=== PATIENT | female | born 1975 | race Caucasian/White ===

== ENCOUNTER → 2016-06-07 | Outpatient (CLI) | payer BC | LOC: GMAB 15:39 | PROVIDERS: ATTEND Family Medicine | DX: E03.9 Hypothyroidism, unspecified (principal) ==

== ENCOUNTER 2016-08-14 12:09 | Emergency (ER) | payer BC ==
[2016-08-14 12:25] VITALS: TEMP 99.1
[2016-08-14] MEDS ORDERED: ASPIRIN (CHEWABLE) 81 MG TAB ONE (12:28)
[2016-08-14] MEDS ORDERED: NITROGLYCERIN 0.4 MG 25 EA TAB SL ONE ×2 (12:28→12:39)
[2016-08-14] MEDS ORDERED: ASPIRIN (CHEWABLE) 81 MG TAB PO ONE (12:39)
--- NOTE | 2016-08-14 13:04 | ED.PDOC ---
History of Present Illness - General Chief Complaint: Respiratory Problem Stated Complaint: left arm pain, short of breath Time Seen by Provider: 08/14/16 12:11 Source: patient, RN notes reviewed, Vital Signs reviewed Exam Limitations: no limitations - History of Present Illness Initial Comments: Patient reports that she started Sunday with an episode of dizziness and SOB at work. Went home and rested. Over the weekend she had intermittent episodes of "feeling weird". This morning she started with L upper arm pain, shortness of breath, dizziness and mild chest pressure. Timing/Duration: days - 3-4, intermittent Severity: moderate Activities at Onset: other - @ work Possible Cause: no prior episodes Improving Factors: nothing Worsening Factors: movement, other - talking Associated Symptoms: chest pain Respiratory Risk Factors: no cause identified Allergies/Adverse Reactions: Allergies NO KNOWN ALLERGY Allergy (Verified 08/14/16 12:19) Home Medications: Ambulatory Orders Levothyroxine Sodium [Synthroid] 0.112 mg PO DAILY 04/28/16 Review of Systems - Review of Systems Constitutional: States: no symptoms reported. Denies: chills, diaphoresis, fever, malaise, weakness EENTM: States: no symptoms reported Respiratory: States: short of breath. Denies: cough Cardiology: States: chest pain. Denies: edema, palpitations, syncope Gastrointestinal/Abdominal: States: nausea - started just prior to arrival here. Genitourinary: States: no symptoms reported Musculoskeletal: States: see HPI - L upper arm pain Skin: States: no symptoms reported Neurological: States: other - lightheaded/dizzy Endocrine: States: no symptoms reported Hematologic/Lymphatic: States: no symptoms reported Past Medical History (General) - Patient Medical History Hx Seizures: No Hx Stroke: No Hx Dementia: No Hx Asthma: No Hx of COPD: No Hx Cardiac Disorders: No Hx Congestive Heart Failure: No Hx Pacemaker: No Hx Hypertension: No Hx Thyroid Disease: Yes Hx Diabetes: No Hx Gastroesophageal Reflux: No Hx Renal Disease: No Hx Cancer: No Hx of HIV: No Hx Hepatitis C: No Hx MRSA: No MRSA Source:: Wound - Vaccination History Hx Tetanus, Diphtheria Vaccination: Yes Hx Influenza Vaccination: No Hx Pneumococcal Vaccination: No Immunizations Up to Date: No - Social History Hx Tobacco Use: No Hx Chewing Tobacco Use: No Hx Alcohol Use: No Hx Substance Use: No Hx Substance Use Treatment: No Hx Depression: No Feels Threatened In Home Enviroment: No Feels Threatened In a Relationship: No Hx Physical Abuse: No Hx Emotional Abuse: No Hx Suspected Abuse: No - Female History Patient is a Female of Child Bearing Age (10 -59 yrs old): No Patient : No Family Medical History - Family History Mother Family History: No Known Living Status: Unknown Hx Family Asthma: No Hx Family Hypertension: Yes Hx Family Diabetes: Yes Physical Exam - Physical Exam General Appearance: Alert, No apparent distress, Obvious distress - obviously SOB, Well Developed, Well Groomed, Well Hydrated, Well Nourished Eyes, Ears, Nose, Throat Exam: PERRL/EOMI, normal ENT inspection, pharynx normal Neck: non-tender, full range of motion, supple, normal inspection Respiratory: lungs clear, normal breath sounds, respiratory distress - Obviously SOB Cardiovascular/Chest: normal peripheral pulses, regular rate, rhythm, no edema, no gallop, no JVD, no murmur Peripheral Pulses: radial,right: 2+, radial,left: 2+, posterior tibialis,right: 2+, posterior tibialis,left: 2+ Gastrointestinal/Abdominal: normal bowel sounds, non tender, soft, no organomegaly, no pulsatile mass Extremity: normal range of motion, non-tender, normal inspection 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 Chest pressure improved with 2nd SLNTG - down to 05/3008/14/16 13:17 Patient reports she is feeling better. She is no longer visibly SOB. First set of cardiac enzymes looks ok. EKG is changed from 04/28/16. So will repeat cardiac enzymes in 3 hours. Patient is agreeable with plan. 08/14/16 16:11 Second set of cardiac enzymes are normal. Will d/c home with close follow up with PCP and [facility]. - Results/Orders Results/Orders: Laboratory Tests 08/14/16 08/14/16 12:45 15:40 WBC 7.8 RBC 4.51 Hgb 13.9 Hct 41.3 MCV 91.6 MCH 30.8 MCHC 33.7 RDW 13.8 Plt Count 175 MPV 8.0 Absolute Neuts (auto) 5.30 Absolute Lymphs (auto) 2.00 Absolute Monos (auto) 0.40 Absolute Eos (auto) 0.10 Absolute Basos (auto) 0.10 Neutrophils % 67.4 Lymphocytes % 25.8 Monocytes % 5.0 Eosinophils % 1.0 Basophils % 0.8 Sodium 138 Potassium 3.9 Chloride 104 Carbon Dioxide 27 Anion Gap 10.9 L BUN 16 Creatinine 0.96 BUN/Creatinine Ratio 16.7 Random Glucose 129 H Serum Osmolality 278.6 Calcium 9.1 Total Bilirubin 0.6 AST 25 ALT 22 Alkaline Phosphatase 38 L Creatine Kinase 154 H 133 CK-MB (CK-2) 2.0 1.6 CK-MB (CK-2) % Not Reportable Not Reportable Troponin I < 0.02 < 0.02 B-Natriuretic Peptide 25.1 Serum Total Protein 6.5 Albumin 3.9 Globulin 2.6 Albumin/Globulin Ratio 1.5 - EKG/XRAY/CT EKG: Sinus, nonspecific ST T wave Chg, Changed from - 04/28/16 - T-waves are flattened in V3-6, III Comments: poor R wave progression, Rate 87bpm XRAY: chest - Normal per radiology Departure - Departure Clinical Impression: Shortness of breath Chest pain Qualifiers: Chest pain type: unspecified Qualifier Code: (R07.9) Chest pain, unspecified Time of Disposition: 16:14 Disposition: Discharge to Home or Self Care Condition: Good Departure Forms: ED Discharge - Pt. Copy, Patient Portal Self Enrollment Instructions: DI for Shortness of Breath, DI for Atypical Chest Pain Referrals: RACHELE RODRIGEZ MD [Consulting Staff] - 1-2 Weeks Margarito Wiseman MD [Primary Care Provider] - 1-2 Days Home Medications: Ambulatory Orders Levothyroxine Sodium [Synthroid] 0.112 mg PO DAILY 04/28/16
--- NOTE | 2016-08-14 13:34 | RAD ---
EXAM DESCRIPTION: Chest,1 View CLINICAL HISTORY: 40 years Female, chest pain/SOB COMPARISON: May 11, 2012 TECHNIQUE: AP portable chest. FINDINGS: The lungs are clear. There is no infiltrate or effusion. The heart is normal size. IMPRESSION: Normal. Electronically signed by: Dada Holland MD 08/14/2016 1:23 PM CDT
[2016-08-14 16:51] VITALS: BP 104/66; O2SAT 97
== END 2016-08-14 16:20 | disposition home or self-care (01) ==
LOC: ER 12:09
DX: R06.02 Shortness of breath (principal); R07.9 Chest pain, unspecified; E07.9 Disorder of thyroid, unspecified

== ENCOUNTER → 2016-10-19 | Outpatient (CLI) | payer BC | END | disposition home or self-care (01) | LOC: LAB.O 09:42 | PROVIDERS: ATTEND Family Medicine | DX: N95.1 Menopausal and female climacteric states (principal); E03.4 Atrophy of thyroid (acquired); E34.9 Endocrine disorder, unspecified ==

== ENCOUNTER → 2017-08-17 | Outpatient (CLI) | payer BC ==
--- NOTE | 2017-08-18 08:58 | RAD ---
EXAM DESCRIPTION: Knee,Left Complete CLINICAL HISTORY: 41 years, Female, PAIN COMPARISON: Previous study March 24, 2016 TECHNIQUE: 4 views of the left knee FINDINGS: No fracture or dislocation. Bones appear normally mineralized with normal trabecular pattern. Narrowed appearance of the medial compartment on frontal view. Medial joint line spurring is present. There is spurring at the tibial spines. Small ossific loose body is seen in the intercondylar region. Lateral view shows normal position of the patella. Mild posterior patellar spurring. No suprapatellar knee joint effusion. Normal contour of quadriceps and patellar tendons. No abnormal patellar tilt or subluxation on patellar sunrise view. Compared to previous study, findings are essentially unchanged. IMPRESSION: Degenerative osteoarthrosis of the left knee with predominant involvement of the medial compartment. Electronically signed by: Trung Scanlon MD 08/18/2017 8:57 AM CDT
--- NOTE | 2017-08-18 09:00 | RAD ---
EXAM DESCRIPTION: Pelvis CLINICAL HISTORY: 41 years Female, PAIN IN LEFT HIP COMPARISON: None. TECHNIQUE: Single AP view of the hips and pelvis FINDINGS: Negative for fracture or dislocation. 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 Calcifications are seen in the pelvis probably vascular. IMPRESSION: No acute process. Electronically signed by: Trung Scanlon MD 08/18/2017 8:58 AM CDT
== END ==
LOC: RAD 07:55
PROVIDERS: ATTEND Orthopaedic Surgery
DX: M17.12 Unilateral primary osteoarthritis, left knee (principal); M25.552 Pain in left hip

== ENCOUNTER → 2017-08-20 | Outpatient (CLI) | payer BC | LOC: GMAB 16:39 | PROVIDERS: ATTEND Family Medicine | DX: M25.562 Pain in left knee (principal); R23.2 Flushing; E04.9 Nontoxic goiter, unspecified ==

== ENCOUNTER → 2018-06-05 | Outpatient (CLI) | payer BC | LOC: GMAE 17:19 | PROVIDERS: ATTEND Family Medicine | DX: E03.9 Hypothyroidism, unspecified (principal) ==

== ENCOUNTER → 2018-07-11 | Outpatient (CLI) | payer BC | LOC: LAB.O 15:23 | PROVIDERS: ATTEND Family Medicine | DX: S61.032A Puncture wound without foreign body of left thumb without damage to nail, initial encounter (principal) ==

== ENCOUNTER 2018-08-25 11:05 | Emergency (ER) | payer BC ==
[2018-08-25] MEDS ORDERED: LIDOCAINE 1% 2 ML VIAL INJ ONE (11:57)
--- NOTE | 2018-08-25 11:59 | ED.PDOC ---
History of Present Illness - General Chief Complaint: Problem Stated Complaint: pain with urination,bilateral flank pain Time Seen by Provider: 08/25/18 11:30 Source: patient Exam Limitations: no limitations - History of Present Illness Initial Comments: The patient is a 42-year-old female presenting to the emergency room secondary to symptoms ofa UTI and pyelonephritis. She started with symptoms of urinary frequency and bladder cramping. She also had significant dysuria. She has had a small amount of hematuria as well. Today she started having some flank pain. Mild nausea. No vomiting. No fever. No chest pain. No syncope or near syncope. No recent urinary tract infections. The patient has had a hysterectomy. Timing/Duration: other - 3-5 days Severity: moderate Improving Factors: nothing Worsening Factors: nothing Associated Symptoms: diaphoresis, nausea/vomiting Allergies/Adverse Reactions: Allergies NO KNOWN ALLERGY Allergy (Verified 08/14/16 12:19) Home Medications: Ambulatory Orders Levothyroxine Sodium [Synthroid] 0.112 mg PO DAILY 04/28/16 Ciprofloxacin [Cipro] 500 mg PO BID #14 tab 08/25/18 Nitrofurantoin Monohydrate Mac [Macrobid] 100 mg PO BID #14 capsule 08/25/18 Review of Systems - Review of Systems Constitutional: States: malaise EENTM: States: no symptoms reported Respiratory: States: no symptoms reported Cardiology: States: no symptoms reported Gastrointestinal/Abdominal: States: abdominal pain, diarrhea - 2 episodes, nausea. Denies: constipation, vomiting Genitourinary: States: dysuria, frequency, hematuria, pain Musculoskeletal: States: back pain - right flank pain Skin: States: no symptoms reported Neurological: States: no symptoms reported Endocrine: States: no symptoms reported All other Systems: No Change from Baseline Past Medical History (General) - Patient Medical History Hx Seizures: No Hx Stroke: No Hx Dementia: No Hx Asthma: No Hx of COPD: No Hx Cardiac Disorders: No Hx Congestive Heart Failure: No Hx Pacemaker: No Hx Hypertension: No Hx Thyroid Disease: Yes Hx Diabetes: No Hx Gastroesophageal Reflux: No Hx Renal Disease: No Hx Cancer: No Hx of HIV: No Hx Hepatitis C: No Hx MRSA: No MRSA Source:: Wound Surgical History: Hysterectomy - Vaccination History Hx Tetanus, Diphtheria Vaccination: Yes Hx Influenza Vaccination: No Hx Pneumococcal Vaccination: No - Social History Hx Tobacco Use: No Hx Chewing Tobacco Use: No Hx Alcohol Use: No Hx Substance Use: No Hx Substance Use Treatment: No Hx Depression: Yes Hx Physical Abuse: No Hx Emotional Abuse: No Hx Suspected Abuse: No - Female History Patient is a Female of Child Bearing Age (10 -59 yrs old): No Patient : No Family Medical History - Family History Mother Family History: No Known Living Status: Unknown Hx Family Asthma: No Hx Family Hypertension: Yes Hx Family Diabetes: Yes Physical Exam - Physical Exam General Appearance: Alert, No apparent distress, Other - the patient is obviously uncomfortable Eye Exam: bilateral normal Ears, Nose, Throat: hearing grossly normal, normal ENT inspection, normal pharynx Neck: full range of motion, supple Respiratory: no respiratory distress, no accessory muscle use Cardiovascular/Chest: normal peripheral pulses, no edema, other - regular rate Peripheral Pulses: radial,right: 2+, radial,left: 2+ Gastrointestinal/Abdominal: soft, other - mild suprapubic discomfort palpation. No rebound or peritoneal signs. 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 The patient is being dosed with Rocephin and ciprofloxacin here. She is going to be written for ciprofloxacin and Macrobid for the next 7 days. She needs to keep herself well-hydrated. Motrin or Aleve can be used as an anti-inflammatory. ER warnings were given for any worsening. Keep follow-up with primary care doctor later this week for a repeat urinalysis to confirm clearance. Urine culture is being done. Vital signs are stable. - Results/Orders Results/Orders: Laboratory Tests 08/25/18 11:27 Urine Color Green H Urine Appearance Cloudy Urine pH 5.5 Ur Specific [place] 1.025 Urine Protein 100 H Urine Glucose (UA) Negative Urine Ketones Negative Urine Blood Moderate H Urine Nitrite Negative Urine Bilirubin Negative Urine Urobilinogen 0.2 Ur Leukocyte Esterase Moderate H Urine RBC Obscured by wbc's H Urine WBC >50 H Ur Epithelial Cells 0 Urine Bacteria 3+ H Departure - Departure Clinical Impression: Pyelonephritis, Cystitis Disposition: Discharge to Home or Self Care Condition: Fair Departure Forms: ED Discharge - Pt. Copy, Patient Portal Self Enrollment Instructions: DI for Urinary Tract Infection (UTI) Diet: regular diet Activity: increase activity as tolerated Referrals: SULTANA STRONG MD [Primary Care Provider] - 1-5 Days Prescriptions: Ciprofloxacin [Cipro] 500 mg PO BID #14 tab Nitrofurantoin Monohydrate Mac [Macrobid] 100 mg PO BID #14 capsule Home Medications: Ambulatory Orders Levothyroxine Sodium [Synthroid] 0.112 mg PO DAILY 04/28/16 Ciprofloxacin [Cipro] 500 mg PO BID #14 tab 08/25/18 Nitrofurantoin Monohydrate Mac [Macrobid] 100 mg PO BID #14 capsule 08/25/18 Additional Instructions: the patient is a 42-year-old female presenting to the emergency room secondary to what appears to be cystitis and pyelonephritis on the right. The patient is being dosed with Rocephin and ciprofloxacin here. She is going to be written for ciprofloxacin and Macrobid for the next 7 days. She needs to keep herself well-hydrated. Motrin or Aleve can be used as an anti-inflammatory. ER warnings were given for any worsening. Keep follow-up with primary care doctor later this week for a repeat urinalysis to confirm clearance. Urine culture is being done. Vital signs are stable.
[2018-08-25] MEDS: cefTRIAXone SODIUM 1 GM VIAL IM ONE (12:04)
[2018-08-25] MEDS: CIPROFLOXACIN 500 MG TAB PO ONE (12:05)
[2018-08-25] MEDS: FLUCONAZOLE 100 MG TAB PO ONE (12:05)
[2018-08-25 12:16] VITALS: BP 102/75; TEMP 98.8; O2SAT 99
== END 2018-08-25 12:15 | disposition home or self-care (01) ==
LOC: ER 11:05
DX: N12 Tubulo-interstitial nephritis, not specified as acute or chronic (principal); N30.90 Cystitis, unspecified without hematuria; F32.9 Major depressive disorder, single episode, unspecified; E07.9 Disorder of thyroid, unspecified
CPT/HCPCS: 81001; 87086; J0696

== ENCOUNTER → 2018-09-11 | Outpatient (CLI) | payer BC | LOC: GMAE 15:10 | PROVIDERS: ATTEND Family Medicine | DX: R53.82 Chronic fatigue, unspecified (principal); N12 Tubulo-interstitial nephritis, not specified as acute or chronic; N10 Acute pyelonephritis ==

== ENCOUNTER → 2018-09-25 | Outpatient (CLI) | payer BC | LOC: GMAE 16:46 | PROVIDERS: ATTEND Family Medicine | DX: R53.82 Chronic fatigue, unspecified (principal) ==

== ENCOUNTER 2018-12-08 11:25 | Emergency (ER) | payer BC ==
--- NOTE | 2018-12-08 11:57 | ED.PDOC ---
History of Present Illness - General Chief Complaint: Cardiovascular Problem Stated Complaint: chest pain Time Seen by Provider: 12/08/18 11:33 Source: patient - History of Present Illness Initial Comments: Patient presents with chest pressure for about one hour. 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 She says that it feels like pressure on her sternum. It is non-radiating. She has light-headedness with it. She has had multiple previous episodes that she says were anxiety attacks. She says this feels like an anxiety attack but it has lasted longer. Denies cardiac history. She has intermittent bipedal edema. She says her cholesterol was " a little high" recently but she is not receiving treatment. No history of orthopnea. No COLLIER. No first degree relatives with cardiac disease. No history of tobacco use nor diabetes. No other complaints. Timing/Duration: 1 hour Severity: mild Improving Factors: nothing Worsening Factors: nothing Associated Symptoms: other - as in HPI Allergies/Adverse Reactions: Allergies NO KNOWN ALLERGY Allergy (Verified 08/14/16 12:19) Home Medications: Ambulatory Orders Levothyroxine Sodium [Synthroid] 0.112 mg PO DAILY 04/28/16 Ciprofloxacin [Cipro] 500 mg PO BID #14 tab 08/25/18 Nitrofurantoin Monohydrate Mac [Macrobid] 100 mg PO BID #14 capsule 08/25/18 Review of Systems - Review of Systems Constitutional: States: see HPI EENTM: States: no symptoms reported Respiratory: States: no symptoms reported Cardiology: States: see HPI Gastrointestinal/Abdominal: States: no symptoms reported Genitourinary: States: no symptoms reported Musculoskeletal: States: no symptoms reported Skin: States: no symptoms reported Neurological: States: anxiety Endocrine: States: no symptoms reported Hematologic/Lymphatic: States: no symptoms reported Past Medical History (General) - Patient Medical History Hx Seizures: No Hx Stroke: No Hx Dementia: No Hx Asthma: No Hx of COPD: No Hx Cardiac Disorders: No Hx Congestive Heart Failure: No Hx Pacemaker: No Hx Hypertension: No Hx Thyroid Disease: Yes Hx Diabetes: No Hx Gastroesophageal Reflux: No Hx Renal Disease: No Hx Cancer: No Hx of HIV: No Hx Hepatitis C: No Hx MRSA: No MRSA Source:: Wound - Vaccination History Hx Tetanus, Diphtheria Vaccination: Yes Hx Influenza Vaccination: No Hx Pneumococcal Vaccination: No - Social History Hx Tobacco Use: No Hx Chewing Tobacco Use: No Hx Alcohol Use: No Hx Substance Use: No Hx Substance Use Treatment: No Hx Depression: Yes Hx Physical Abuse: No Hx Emotional Abuse: No Hx Suspected Abuse: No - Female History Patient : No Family Medical History - Family History Mother Family History: No Known Living Status: Unknown Hx Family Asthma: No Hx Family Hypertension: Yes Hx Family Diabetes: Yes Physical Exam - Physical Exam General Appearance: Alert Eye Exam: bilateral normal Ears, Nose, Throat: normal ENT inspection Neck: non-tender, full range of motion, supple Respiratory: lungs clear, normal breath sounds Cardiovascular/Chest: normal peripheral pulses, regular rate, rhythm, no edema Gastrointestinal/Abdominal: normal bowel sounds, non tender, soft Back Exam: normal inspection, no CVA tenderness Extremity: normal range of motion, non-tender, normal inspection Neurologic: no motor/sensory deficits, alert, normal mood/affect, oriented x 3 Skin Exam: normal color Lymphatic: no adenopathy Progress - Progress Progress: 12/08/18 14:07 Laboratory Tests 12/08/18 12/08/18 12/08/18 11:56 11:56 11:56 WBC 7.4 RBC 4.66 Hgb 14.7 Hct 43.0 MCV 92.2 MCH 31.6 H MCHC 34.3 RDW 13.7 Plt Count 192 MPV 8.7 Absolute Neuts (auto) 4.50 Absolute Lymphs (auto) 2.20 Absolute Monos (auto) 0.60 Absolute Eos (auto) 0.10 Absolute Basos (auto) 0.10 Neutrophils % 60.6 Lymphocytes % 29.8 Monocytes % 7.5 Eosinophils % 1.2 Basophils % 0.9 PT 9.7 INR 0.97 PTT (SP) 23.2 Sodium 135 Potassium 3.9 Chloride 107 Carbon Dioxide 16 L Anion Gap 15.9 BUN 21 H Creatinine 0.97 BUN/Creatinine Ratio 21.6 H Random Glucose 98 Serum Osmolality 273.0 L Calcium 9.3 Total Bilirubin 0.8 AST 30 ALT 25 Alkaline Phosphatase 35 L Creatine Kinase CK-MB (CK-2) CK-MB (CK-2) % Troponin I B-Natriuretic Peptide Serum Total Protein 7.0 Albumin 4.1 Globulin 2.9 Albumin/Globulin Ratio 1.4 Urine Color Urine Appearance Urine pH Ur Specific [place] Urine Protein Urine Glucose (UA) Urine Ketones Urine Blood Urine Nitrite Urine Bilirubin Urine Urobilinogen Ur Leukocyte Esterase Urine RBC Urine WBC Ur Epithelial Cells Urine Bacteria 12/08/18 12/08/18 11:56 13:13 WBC RBC Hgb Hct MCV MCH MCHC RDW Plt Count MPV Absolute Neuts (auto) Absolute Lymphs (auto) Absolute Monos (auto) Absolute Eos (auto) Absolute Basos (auto) Neutrophils % Lymphocytes % Monocytes % Eosinophils % Basophils % PT INR PTT (SP) Sodium Potassium Chloride Carbon Dioxide Anion Gap BUN Creatinine BUN/Creatinine Ratio Random Glucose Serum Osmolality Calcium Total Bilirubin AST ALT Alkaline Phosphatase Creatine Kinase 189 H CK-MB (CK-2) 2.3 CK-MB (CK-2) % Not Reportable Troponin I < 0.02 B-Natriuretic Peptide 35.0 Serum Total Protein Albumin Globulin Albumin/Globulin Ratio Urine Color Yellow Urine Appearance Clear Urine pH 6.0 Ur Specific [place] 1.010 Urine Protein Negative Urine Glucose (UA) Negative Urine Ketones 15 H Urine Blood Small H Urine Nitrite Negative Urine Bilirubin Negative Urine Urobilinogen 0.2 Ur Leukocyte Esterase Negative Urine RBC 1-3 Urine WBC 0 Ur Epithelial Cells 1-3 Urine Bacteria 0 Patient given one liter NS IV bolus. Symptoms resolved in the E.D. EKG showed NSR with no ST changes nor T wave inversions. No LBBB. Troponin negative. Likely anxiety attack with mild dehydration. Care instructions given. E.R. warnings given. Questions were elicited and answered. Patient voiced understanding and agreement with the plan. Departure - Departure Clinical Impression: Chest pain, Anxiety Disposition: Discharge to Home or Self Care Condition: Good Departure Forms: ED Discharge - Pt. Copy, Patient Portal Self Enrollment Instructions: DI for Chest Pain Diet: resume usual diet Activity: increase activity as tolerated Referrals: SULTANA STRONG MD [Primary Care Provider] - 1-2 Weeks Home Medications: Ambulatory Orders Levothyroxine Sodium [Synthroid] 0.112 mg PO DAILY 04/28/16 Ciprofloxacin [Cipro] 500 mg PO BID #14 tab 08/25/18 Nitrofurantoin Monohydrate Mac [Macrobid] 100 mg PO BID #14 capsule 08/25/18 Additional Instructions: Return to the E.R. if symptoms recur. Return for temperature above 100.3 or shortness of breath. Follow up with your regular doctor in 1-2 days.
[2018-12-08 12:03] VITALS: TEMP 98.7
[2018-12-08] MEDS ORDERED: SODIUM CHLORIDE 0.9% 1000ML 1,000 ML IVS ONE (12:37)
--- NOTE | 2018-12-08 13:13 | RAD ---
EXAM: XR Chest, 1 View CLINICAL HISTORY: 42 years old and is Female; chest pain TECHNIQUE: Frontal view of the chest. COMPARISON: 08/14/2016 FINDINGS: Limitations: None. Lungs: Unremarkable. No consolidation. Pleural space: Unremarkable. No pneumothorax. Heart: Unremarkable. No cardiomegaly. Mediastinum: Unremarkable. Bones/joints: Unremarkable. IMPRESSION: No acute findings. Electronically signed by: Araceli Garcia MD 12/08/2018 1:11 PM CDT
[2018-12-08 13:42] VITALS: O2SAT 100
[2018-12-08 14:31] VITALS: BP 112/71
== END 2018-12-08 14:22 | disposition home or self-care (01) ==
LOC: ER 11:25
DX: R07.89 Other chest pain (principal); F41.9 Anxiety disorder, unspecified; R42 Dizziness and giddiness; F32.9 Major depressive disorder, single episode, unspecified; E07.9 Disorder of thyroid, unspecified; Z79.899 Other long term (current) drug therapy
CPT/HCPCS: 36415; 71045; 80053; 81001; 82550; 82553; 83880; 84484; 85025; 85610; 85730; 93005; J7030

== ENCOUNTER → 2019-07-11 | Outpatient (CLI) | payer BC | LOC: GMAE 13:38 | PROVIDERS: ATTEND Family Medicine | DX: R53.83 Other fatigue (principal) ==

== ENCOUNTER → 2019-09-25 | Outpatient (CLI) | payer BC ==
--- NOTE | 2019-09-25 08:35 | RAD ---
EXAM DESCRIPTION: Knee,Left Complete CLINICAL HISTORY: 43 years Female, PAIN IN LEFT KNEE COMPARISON: Left knee radiographs 08/17/2017 TECHNIQUE: 4 view radiographs of the left knee. IMPRESSION: No acute displaced fracture. No dislocation. Moderate joint space narrowing of the weightbearing knee compartment with no significant subchondral sclerosis along the tibial plateau. No marginal osteophytosis. Moderate patellofemoral arthrosis. No knee joint effusion. No lateral patellar tilt or subluxation observed. No radiographic foreign body or soft tissue defect. Electronically signed by: Vladimir Bush MD 09/25/2019 8:33 AM CDT
--- NOTE | 2019-09-25 08:36 | RAD ---
EXAM DESCRIPTION: Pelvis CLINICAL HISTORY: 43 years Female, PAIN IN LEFT HIP COMPARISON: 08/17/2017 TECHNIQUE: Single view radiograph of the pelvis. IMPRESSION: Partially obscured sacrum and coccyx by overlying bowel. No acute displaced fracture. No dislocation. No appreciable arthrosis of the hip. 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 Electronically signed by: Vladimir Bush MD 09/25/2019 8:34 AM CDT
== END ==
LOC: RAD 08:07
PROVIDERS: ATTEND Orthopaedic Surgery
DX: M25.552 Pain in left hip (principal); Q76.49 Other congenital malformations of spine, not associated with scoliosis; M17.12 Unilateral primary osteoarthritis, left knee; M25.862 Other specified joint disorders, left knee

== ENCOUNTER → 2019-10-08 | Outpatient (CLI) | payer OTHER, BC ==
--- NOTE | 2019-10-08 08:55 | MRI ---
EXAM DESCRIPTION: Knee,Right CLINICAL HISTORY: INSTABILITY RIGHT KNEE, knee gave out about three weeks ago. COMPARISON: None Available. TECHNIQUE: MRI of the right knee is performed with multiplanar multi sequence imaging, without intravenous contrast. FINDINGS: Bone and joint: No focal bony contusion or acute fracture. Small knee joint effusion. Cartilage: Focal grade 3 chondrosis involves the medial knee compartment central weightbearing surfaces with small full-thickness chondral fissuring at the medial tibial plateau. Grade one chondrosis involves the lateral knee compartment. Grade 3-4 chondrosis involves the patellofemoral compartment with patchy areas of full-thickness cartilage loss involving the medial patellar facet and patellar apex.. Medial meniscus: Body and posterior horn increased intrasubstance signal extending to a small undersurface tear of the posterior horn (series 4 one and 10). Lateral meniscus: Intact Anterior cruciate ligament: Increased interstitial signal within the distal insertional fibers suggesting low-grade/grade 1 ACL sprain. Posterior cruciate ligament: Intact Medial collateral ligament: Intact Lateral collateral ligament: Intact Popliteus tendon: Intact Biceps femoris tendon: Intact Iliotibial band: Intact Medial and lateral retinaculum: Intact Extensor mechanism: The distal quadriceps tendon is intact. The patella tendon is intact. Soft tissues: No solid or cystic mass. Mild prepatellar and infrapatellar bursal fluid. Mild impingement edema is also noted within Hoffa's fat. IMPRESSION: 1. Medial meniscus tear. 2. ACL grade 1 sprain. 3. Mild to moderate right knee osteoarthrosis with medial tibial plateau smaller areas of full-thickness chondral fissuring and patchy areas of full-thickness cartilage loss involving the patellofemoral compartment. Small knee joint effusion. 4. Mild prepatellar and infrapatellar bursitis. Electronically signed by: Sim Mares DO 10/08/2019 8:53 AM CDT
== END ==
LOC: MRI 08:00
PROVIDERS: ATTEND Nurse Practitioner Family
DX: S83.241A Other tear of medial meniscus, current injury, right knee, initial encounter (principal); M17.11 Unilateral primary osteoarthritis, right knee; M94.8X6 Other specified disorders of cartilage, lower leg; M70.41 Prepatellar bursitis, right knee; M70.51 Other bursitis of knee, right knee; M25.461 Effusion, right knee

== ENCOUNTER → 2020-06-22 | Outpatient (CLI) | payer BC | LOC: GMAE 10:30 | PROVIDERS: ATTEND Family Medicine | DX: R53.83 Other fatigue (principal); E03.9 Hypothyroidism, unspecified ==